=== PATIENT | male | born 1955 | race Caucasian/White ===

== ENCOUNTER → 2016-11-29 09:23 | Outpatient (CLI) | payer BC ==
[2013-12-07 12:00] VITALS: BMI 22.8
[~2016-11-29 09:23] MED LIST: ASPIRIN325 MG PO; ATIVAN1 MG PO; CARDIZEM120 MG PO; IPRAT-ALBUT 0.5-3 ML NEB; LEVAQUIN500 MG PO; LIPITOR10 MG PO; LIPITOR20 MG PO; NORCO 10/325 TA1 TA1 PO; PRINIVIL20 MG PO; ZANTAC150 MG PO
== END | disposition home or self-care (01) ==
LOC: D.CT 09:23
DX: C34.11 Malignant neoplasm of upper lobe, right bronchus or lung (principal)

== ENCOUNTER → 2018-03-13 07:29 | Outpatient (CLI) | payer BC ==
[2013-12-07 12:00] VITALS: BMI 22.8
== END | disposition home or self-care (01) ==
LOC: D.CT 07:29
DX: C34.90 Malignant neoplasm of unspecified part of unspecified bronchus or lung (principal)